=== PATIENT | female | born 1985 | race Caucasian/White ===

== ENCOUNTER 2020-02-06 12:39 | Emergency (ER) | payer OTHER ==
[~2020-02-06] VITALS: Ht 165.1 cm; Wt 64.4 kg
[2020-02-06 13:35] LABS: URINE BILIRUBIN NEGATIVE (Negative); URINE BLOOD NEGATIVE (Negative); URINE CLARITY CLEAR; URINE COLOR YELLOW; URINE GLUCOSE-RANDOM* NEGATIVE (Negative); URINE KETONES NEGATIVE (Negative); URINE LEUKOCYTES-REFLEX NEGATIVE (Negative); URINE NITRITE-REFLEX NEGATIVE (Negative); URINE PROTEIN (DIPSTICK) NEGATIVE (Negative); URINE SPECIFIC GRAVITY <= 1.005 (1.005-1.035); URINE UROBILINOGEN 0.2 E.U./dl (0.2-1.0)
[2020-02-06 13:41] LABS: ABSOLUTE NEUTROPHILS 3.5 thou/uL (1.4-8.2); BASOPHILS 0.7 % (0.0-2.0); EOSINOPHILS 1.7 % (0.0-3.0); HEMATOCRIT 37.1 % (37.0-47.0); LYMPHOCYTES 29.7 % (24.0-44.0); MCH 33.9 pg (26.0-34.0); MCV 96.7 fL (80.0-100.0); MONOCYTES 8.6 % (1.0-8.0); PLATELET COUNT 217 thou/uL (150-400); POLYS 59.3 % (36.0-66.0); RBC 3.83 mil/uL (4.20-5.00); RDW 12.3 % (10.5-14.5)
[2020-02-06 13:46] LABS: ANION GAP 8 mmol/L (7-16); BUN 6 mg/dL (7-18); CALCIUM 8.8 mg/dL (8.5-10.1); CHLORIDE 102 mmol/L (98-107); CO2 27 mmol/L (21-32); CREATININE 0.7 mg/dL (0.6-1.0); GLUCOSE 92 mg/dL (74-106); POTASSIUM 3.5 mmol/L (3.5-5.1); SODIUM 137 mmol/L (136-145)
[2020-02-06 13:57] LABS: ALBUMIN 3.8 g/dL (3.4-5.0); LIPASE 98 U/L (73-393); MAGNESIUM 1.9 mg/dL (1.8-2.4); SGOT 19 U/L (15-37); SGPT 25 U/L (30-65); TOTAL BILIRUBIN 0.5 mg/dL (0.2-1.0); TOTAL PROTEIN 6.3 g/dL (6.4-8.2); TROPONIN-I <0.06 ng/mL (<0.06)
[2020-02-06] MEDS ORDERED: TRAMADOL 50 MG50 MG PO (14:50)
[2020-02-06] MEDS ORDERED: PRILOSEC OTC20 MG PO (14:50)
[2020-02-06 15:08] VITALS: BP 110/67
--- NOTE | 2020-02-08 07:51 | EKG ---
[facility] [place] [address] ELECTROCARDIOGRAM REPORT Name: COLEEN ROY Room #: [facility]#: [id number] Admission: 02/06/20 Attend Phys: Discharge: 02/06/20 Date of : 87 Report #: [id number] THIS REPORT FOR: cc: GINETTE - Manisha family physician/PCP GINETTE - Manisha family physician/PCP Carson Kuo MD [facility] THIS REPORT FOR: //name// [facility] ED Test Date: 2020-02-06 Test Time: 12:39:57 Pat Name: COLEEN ROY Department: Room: Gender: [id number] Developer: VALDEZ : 1985 Requested By: Vinny Gutierrez Order Number: [id number] MD: Carson Kuo Measurements Intervals [place] Rate: 75 P: 48 [place]: 145 QRS: 84 QRSD: 94 T: 31 QT: 362 QTc: 405 Interpretive Statements Sinus rhythm No significant abnormality No previous ECG available for comparison Electronically Signed On 02-08-2020 7:51:38 CDT by Carson Kuo [email or web address] <ELECTRONICALLY SIGNED> By: Carson Kuo MD, FAC 02/08/20 0751 [id number] Carson Kuo MD, [facility] /EPI
== END 2020-02-06 15:08 | disposition home or self-care (01) ==
LOC: ER 12:39
PROVIDERS: Emergency Medicine
DX: K21.0 Gastro-esophageal reflux disease with esophagitis (principal); R07.89 Other chest pain; Z88.8 Allergy status to other drugs, medicaments and biological substances; Z91.09 Other allergy status, other than to drugs and biological substances